=== PATIENT | female | born 1955 | race Caucasian/White ===

== ENCOUNTER → 2017-07-15 | Outpatient (CLI) | payer OTHER ==
[~2017-07-15] MED LIST: ASPI-621 PO; INSU100C SQ-INSULIN; INSU100V8 SQ; LISI2.5T PO; METF500T4 PO; METO25TA35 PO; SERT25TA PO; VORT10TA PO; ZOLP-413 PO
== END | disposition home or self-care (01) ==
LOC: PETCFH 07:54
PROVIDERS: ATTEND Internal Medicine Gastroenterology
DX: R11.2 Nausea with vomiting, unspecified (principal)
CPT/HCPCS: 78264; A9541

== ENCOUNTER 2017-09-09 14:26 | Inpatient (IN) | payer OTHER ==
[~2017-09-09] VITALS: Ht 158.8 cm; Wt 99.6 kg
[2017-09-09] MEDS ORDERED: LORazepam 2 MG/ML, 1ML IVPush ONE (15:00)
[2017-09-09] MEDS ORDERED: SODIUM CHLORIDE FLUSH 10ML SYR IVF ONE (15:00)
[2017-09-09] MEDS ORDERED: LORazepam 2 MG/ML, 1ML ONE (15:19)
[2017-09-09 15:36] LABS: HEMATOCRIT 37.6 % (34.6-47.8); HEMOGLOBIN 12.4 g/dL (11.7-16.4); WHITE BLOOD COUNT 10.6 x10^3/uL (3.4-10)
[2017-09-09 15:46] LABS: ASPARTATE AMINO TRANSFERASE 8 U/L (15-37); BLOOD UREA NITROGEN 12 mg/dL (7-18)
[2017-09-09] MEDS ORDERED: COLE1TAB2 PO (15:48)
[2017-09-09] MEDS ORDERED: VORT20TA PO (15:48)
[2017-09-09] MEDS ORDERED: LISI5TAB7 PO (15:48)
[2017-09-09] MEDS ORDERED: ATOR40TA78 PO (15:48)
[2017-09-09] MEDS ORDERED: ONDA4TAB12 PO (15:50)
[2017-09-09 15:52] LABS: IS PT STATUS REG ER OR PRE ER? YES
[2017-09-09] MEDS ORDERED: ASPI-650 PO (16:53)
[2017-09-09] MEDS ORDERED: SODIUM CHLORIDE 0.9% 1,000 ML IV SCH (17:35)
[2017-09-09] MEDS ORDERED: ONDANSETRON 2MG/ML, 2ML IVPush PRN (18:00)
[2017-09-09] MEDS ORDERED: ONDANSETRON ODT 4 MG PO PRN (18:00)
[2017-09-09] MEDS ORDERED: LABETALOL 5MG/ML, 20ML IVPush PRN (18:00)
[2017-09-09] MEDS ORDERED: HYDROcodone/APAP 5/325 TABLET PO PRN (18:00)
[2017-09-09] MEDS ORDERED: POLYETHYLENE GLYCOL 17 GM PACKET PO PRN (18:00)
[2017-09-09] MEDS ORDERED: MAALOX/HYOSCYAMINE/LIDOCAINE 45 ML BTL PO ONE (18:30)
[2017-09-09 19:53] VITALS: BP 156/90
[2017-09-09] MEDS: ATORVASTATIN 40 MG TABLET PO SCH (20:08)
[2017-09-09] MEDS: metFORMIN 500 MG TABLET PO SCH (20:11)
[2017-09-09] MEDS: PANTOPRAZOLE 40 MG IV IVPush SCH (20:11)
[2017-09-09] MEDS: ENOXAPARIN 40 MG/0.4 ML SQ SCH (20:12)
[2017-09-09] MEDS ORDERED: trintellix PO (20:34)
[2017-09-09] MEDS: INSULIN DETEMIR 100 UNITS/ML, PEN SQ-INSULIN SCH (21:00)
[2017-09-09 21:03] VITALS: BP 152/84
[2017-09-09 22:12] LABS: IS PT STATUS REG ER OR PRE ER? NO
[2017-09-10 01:35] VITALS: BP 145/79
[2017-09-10 04:09] LABS: HEMATOCRIT 36.8 % (34.6-47.8); HEMOGLOBIN 12.1 g/dL (11.7-16.4); WHITE BLOOD COUNT 11.2 x10^3/uL (3.4-10)
[2017-09-10 04:25] LABS: ASPARTATE AMINO TRANSFERASE 7 U/L (15-37); BLOOD UREA NITROGEN 13 mg/dL (7-18)
[2017-09-10 04:44] LABS: IS PT STATUS REG ER OR PRE ER? NO
[2017-09-10 07:31] VITALS: BP 170/83
[2017-09-10] MEDS: metFORMIN 500 MG TABLET PO SCH ×2 (08:04→22:52)
[2017-09-10] MEDS: SENNA/DOCUSATE TABLET PO SCH (08:04)
[2017-09-10] MEDS ORDERED: REGADENOSON 0.4 MG/5 ML SYRINGE ONE (08:17)
[2017-09-10] MEDS: PANTOPRAZOLE 40 MG IV IVPush SCH ×2 (09:00→11:41)
[2017-09-10] MEDS ORDERED: SODIUM CHLORIDE FLUSH 10ML SYR IVF SCH (09:00)
[2017-09-10] MEDS: ASPIRIN 325 MG TABLET EC PO SCH (11:41)
[2017-09-10] MEDS: LISINOPRIL 5 MG TABLET PO SCH (11:41)
[2017-09-10] MEDS: INSULIN DETEMIR 100 UNITS/ML, PEN SQ-INSULIN SCH ×2 (11:43→22:50)
[2017-09-10 13:45] VITALS: BP 155/85
[2017-09-10] MEDS ORDERED: ACETAMINOPHEN 325 MG TABLET PO PRN (17:00)
[2017-09-10] MEDS: INSULIN ASPART 100 UNITS/ML, PEN SQ-INSULIN SCH (18:00)
[2017-09-10 18:49] VITALS: BP 162/82
[2017-09-10] MEDS ORDERED: DEXTROSE 4 GM TAB.CHEW PO PRN ×2 (19:30)
[2017-09-10] MEDS ORDERED: HYDROcodone/APAP 5/325 TABLET PO PRN (19:30)
[2017-09-10] MEDS ORDERED: ONDANSETRON 2MG/ML, 2ML IVPush PRN (19:30)
[2017-09-10] MEDS ORDERED: ONDANSETRON ODT 4 MG PO PRN (19:30)
[2017-09-10] MEDS ORDERED: DEXTROSE 50%, 50ML SYRINGE IVPush PRN ×2 (19:30)
[2017-09-10] MEDS ORDERED: POLYETHYLENE GLYCOL 17 GM PACKET PO PRN (19:30)
[2017-09-10] MEDS ORDERED: GLUCAGON 1 MG IM PRN ×2 (19:30)
[2017-09-10] MEDS: ENOXAPARIN 40 MG/0.4 ML SQ SCH (22:51)
[2017-09-10] MEDS: ATORVASTATIN 40 MG TABLET PO SCH (22:52)
[2017-09-10] MEDS: SODIUM CHLORIDE FLUSH 10ML SYR IVF SCH (22:52)
[2017-09-11 01:20] VITALS: BP 168/84
[2017-09-11 04:41] LABS: HEMOGLOBIN 12.9 g/dL (11.7-16.4); WHITE BLOOD COUNT 14.9 x10^3/uL (3.4-10)
[2017-09-11 04:47] LABS: BLOOD UREA NITROGEN 22 mg/dL (7-18)
[2017-09-11 04:52] LABS: ASPARTATE AMINO TRANSFERASE 10 U/L (15-37)
[2017-09-11 06:52] VITALS: BP 166/100
[2017-09-11] MEDS: LABETALOL 5MG/ML, 20ML IVPush PRN (07:46)
[2017-09-11] MEDS: LISINOPRIL 5 MG TABLET PO SCH (09:16)
[2017-09-11] MEDS: SENNA/DOCUSATE TABLET PO SCH (09:16)
[2017-09-11] MEDS: ASPIRIN 325 MG TABLET EC PO SCH (09:16)
[2017-09-11] MEDS: PANTOPRAZOLE 40 MG IV IVPush SCH ×2 (09:16→21:55)
[2017-09-11] MEDS: SODIUM CHLORIDE FLUSH 10ML SYR IVF SCH ×2 (09:17→21:56)
[2017-09-11] MEDS: INSULIN DETEMIR 100 UNITS/ML, PEN SQ-INSULIN SCH ×2 (09:18→21:55)
[2017-09-11 09:25] VITALS: BP 156/82
[2017-09-11] MEDS: INSULIN ASPART 100 UNITS/ML, PEN SQ-INSULIN SCH ×3 (09:32→17:27)
[2017-09-11] MEDS: SODIUM CHLORIDE 0.9% 1,000 ML IV SCH ×2 (10:00→23:21)
[2017-09-11] MEDS ORDERED: SODIUM CHLORIDE 0.9% 1,000 ML IV SCH (10:00)
[2017-09-11 13:19] VITALS: BP 130/76
[2017-09-11 15:56] VITALS: BP 115/85
[2017-09-11 18:24] VITALS: BP 139/75
[2017-09-11] MEDS: ENOXAPARIN 40 MG/0.4 ML SQ SCH (20:00)
[2017-09-11] MEDS: ATORVASTATIN 40 MG TABLET PO SCH (21:55)
[2017-09-12 02:24] VITALS: BP 172/90
[2017-09-12] MEDS: ACETAMINOPHEN 325 MG TABLET PO PRN ×2 (02:27→08:32)
[2017-09-12] MEDS: LABETALOL 5MG/ML, 20ML IVPush PRN (02:35)
[2017-09-12 03:30] VITALS: BP 144/75
[2017-09-12 05:22] LABS: HEMATOCRIT 36.7 % (34.6-47.8); HEMOGLOBIN 12.1 g/dL (11.7-16.4); WHITE BLOOD COUNT 12.6 x10^3/uL (3.4-10)
[2017-09-12 05:34] LABS: ASPARTATE AMINO TRANSFERASE 4 U/L (15-37); BLOOD UREA NITROGEN 17 mg/dL (7-18)
[2017-09-12 06:39] VITALS: BP 149/77
[2017-09-12] MEDS: ASPIRIN 325 MG TABLET EC PO SCH (08:32)
[2017-09-12] MEDS: PANTOPRAZOLE 40 MG IV IVPush SCH (08:33)
[2017-09-12] MEDS: SODIUM CHLORIDE FLUSH 10ML SYR IVF SCH (08:33)
[2017-09-12] MEDS: LISINOPRIL 5 MG TABLET PO SCH (08:33)
[2017-09-12] MEDS: SENNA/DOCUSATE TABLET PO SCH (08:33)
[2017-09-12] MEDS: INSULIN DETEMIR 100 UNITS/ML, PEN SQ-INSULIN SCH (08:34)
[2017-09-12] MEDS: INSULIN ASPART 100 UNITS/ML, PEN SQ-INSULIN SCH ×2 (08:34→12:13)
[2017-09-12] MEDS ORDERED: LISINOPRIL 5 MG TABLET PO ONE (10:30)
[2017-09-12] MEDS: SODIUM CHLORIDE 0.9% 1,000 ML IV SCH (11:04)
[2017-09-12] MEDS ORDERED: LISI-167 PO (11:48)
[2017-09-12] MEDS ORDERED: INSU100V8 SQ (11:48)
[2017-09-12] MEDS ORDERED: ASPI-515 PO (11:48)
[2017-09-12 11:51] VITALS: BP 160/83
[2017-09-12] MEDS ORDERED: METO25TA35 PO (11:55)
[2017-09-12] MEDS ORDERED: METOPROLOL TARTRATE 25 MG TABLET PO SCH (12:00)
[2017-09-12 12:57] VITALS: BP 158/84
== END 2017-09-12 16:55 | disposition home or self-care (01) | DRG 638 ==
LOC: ED 15:21 → EDIP 16:09 → 5SO 17:05
PROVIDERS: ADMIT Hospitalist; ATTEND Hospitalist
DX: E11.649 Type 2 diabetes mellitus with hypoglycemia without coma (principal); E44.1 Mild protein-calorie malnutrition; E66.01 Morbid (severe) obesity due to excess calories; D72.829 Elevated white blood cell count, unspecified; E78.5 Hyperlipidemia, unspecified; R07.2 Precordial pain; I16.0 Hypertensive urgency; I25.10 Atherosclerotic heart disease of native coronary artery without angina pectoris; F32.9 Major depressive disorder, single episode, unspecified; G47.33 Obstructive sleep apnea (adult) (pediatric); Z95.1 Presence of aortocoronary bypass graft; Z90.49 Acquired absence of other specified parts of digestive tract
CPT/HCPCS: 36415; 71010; 71020; 78452; 80053; 81003; 82962; 83036; 83735; 84484; 85025; 85610; 93005; 93017; 93306; 96374; J1650; J1815; J2405; J2785; A9502; C9113; C9898; J2060; J7030

== ENCOUNTER 2017-10-10 07:47 | Day surgery (SDC) | payer OTHER ==
[~2017-10-10] VITALS: Ht 157.5 cm; Wt 95.0 kg
[~2017-10-10 07:47] MED LIST changes: +ASPI-515 PO; +ASPI-650 PO; +ATOR40TA78 PO; +BUPIVACAINE/PF 0.5% ONE; +COLE1TAB2 PO; +EPINEPHRINE 1 MG/ML, 1ML ONE; +INSU100I13 SC; +LISI-167 PO; +LISI5TAB7 PO; +ONDA4TAB12 PO; +VORT20TA PO; +trintellix PO
[2017-10-10 08:48] VITALS: BP 151/81
[2017-10-10] MEDS ORDERED: SCOPOLAMINE 1MG PATCH TD STA (08:49)
[2017-10-10] MEDS ORDERED: SCOPOLAMINE 1MG PATCH TD ONE (08:57)
[2017-10-10] MEDS ORDERED: PROPOFOL 50 ML ONE (09:11)
[2017-10-10] MEDS ORDERED: FENTANYL PF 100 MCG/2ML ONE (09:11)
[2017-10-10] MEDS ORDERED: MIDAZOLAM 1 MG/ML, 2ML ONE (09:11)
[2017-10-10] MEDS ORDERED: LIDOCAINE-MPF 2% ,5ML ONE (09:12)
[2017-10-10] MEDS ORDERED: LACTATED RINGERS 1,000 ML IV SCH (09:15)
[2017-10-10] MEDS ORDERED: ONDANSETRON 2MG/ML, 2ML ONE (09:15)
[2017-10-10] MEDS ORDERED: CEFAZOLIN 1,000 MG ONE (09:15)
[2017-10-10] MEDS ORDERED: PROPOFOL 10 MG/ML, 20ML ONE (09:15)
[2017-10-10] MEDS ORDERED: DEXAMETHASONE 4 MG/ML, 1ML ONE (09:15)
[2017-10-10] MEDS ORDERED: PHENYLEPHRINE 10 MG/ML ONE (10:04)
[2017-10-10] MEDS ORDERED: LIDOCAINE GEL 2%, 5ML ONE (10:09)
[2017-10-10] MEDS ORDERED: KETOROLAC 30 MG/1 ML ONE (10:28)
== END 2017-10-10 13:45 ==
LOC: OUT 07:47
PROVIDERS: ATTEND Surgery
DX: N63.20 Unspecified lump in the left breast, unspecified quadrant (principal); L91.8 Other hypertrophic disorders of the skin; E11.9 Type 2 diabetes mellitus without complications; E78.00 Pure hypercholesterolemia, unspecified; K21.9 Gastro-esophageal reflux disease without esophagitis; I25.10 Atherosclerotic heart disease of native coronary artery without angina pectoris; E78.5 Hyperlipidemia, unspecified; E66.9 Obesity, unspecified; Z68.38 Body mass index [BMI] 38.0-38.9, adult; Z88.6 Allergy status to analgesic agent; Z88.3 Allergy status to other anti-infective agents; Z90.49 Acquired absence of other specified parts of digestive tract; Z98.890 Other specified postprocedural states
CPT/HCPCS: 11200; 19120; 82962; 88304; 88307; J0171; J0690; J1100; J1885; J2250; J2370; J2405; J2704; J3010; J3490; J7120

== ENCOUNTER 2017-10-10 23:22 | Emergency (ER) | payer OTHER ==
[~2017-10-10 23:22] MED LIST changes: -BUPIVACAINE/PF 0.5% ONE; -EPINEPHRINE 1 MG/ML, 1ML ONE
[2017-10-11 00:26] LABS: HEMATOCRIT 38.3 % (34.6-47.8); HEMOGLOBIN 12.6 g/dL (11.7-16.4); WHITE BLOOD COUNT 14.8 x10^3/uL (3.4-10)
[2017-10-11 00:26] LABS: PH, VENOUS 7.387 pH (7.320-7.420)
[2017-10-11] MEDS ORDERED: SODIUM CHLORIDE 0.9% 1,000ML IVBOLUS ONE (00:30)
[2017-10-11 00:39] LABS: ASPARTATE AMINO TRANSFERASE 8 U/L (15-37); BLOOD UREA NITROGEN 28 mg/dL (7-18)
[2017-10-11] MEDS ORDERED: INSULIN REGULAR 100 UNITS/ML, 3ML VIAL IVPush ONE ×2 (01:00→01:30)
[2017-10-11] MEDS ORDERED: INSULIN REGULAR 100 UNITS/ML, 3ML VIAL ONE (01:20)
[2017-10-11 02:05] VITALS: BP 155/74
== END 2017-10-11 02:07 | disposition home or self-care (01) ==
LOC: ED 23:59
DX: E11.65 Type 2 diabetes mellitus with hyperglycemia (principal); R51 Headache; E78.5 Hyperlipidemia, unspecified; I10 Essential (primary) hypertension; I25.810 Atherosclerosis of coronary artery bypass graft(s) without angina pectoris; Z95.1 Presence of aortocoronary bypass graft; Z90.49 Acquired absence of other specified parts of digestive tract
CPT/HCPCS: 36415; 80053; 81003; 82010; 82803; 82962; 83690; 85025; 96361; 96374; 99284; J7030

== ENCOUNTER 2018-12-01 11:32 | Emergency (ER) | payer MEDICARE, OTHER ==
[~2018-12-01] VITALS: Ht 157.5 cm; Wt 95.6 kg
[~2018-12-01 11:32] MED LIST changes: -ASPI-621 PO; +ASPI81TA45 PO; +METF500T17 PO; -METF500T4 PO
--- NOTE | 2018-12-01 11:40 | NUR ---
FIRST CONTACT WITH PT. PT C/O LEFT SIDE CP X3DAYS AND DRY COUGH X 3WEEK WITH NAUSEA. PT STATES GRADUAL ONSET OF LEFT SIDE CP AND DENIES RADIATING TO ANYWHERE. PT HAS HX OF PHNEUMONIA,HTN,HLD,[place]. PT DENIES FEVER/D AND [place]. PT AOX4. NEURO INTACT. RESPS EVEN AND UNLABORED. ALL MONITORS IN PLACE. CALL LIGHT WITHIN REACH.
[2018-12-01] MEDS ORDERED: ASPI-650 PO (12:14)
[2018-12-01 12:22] LABS: BASOPHILS # (AUTO) 0.09 x10^3/uL (0-0.1); BASOPHILS % (AUTO) 1 % (0-1); EOSINOPHILS # (AUTO) 0.26 x10^3/uL (0-0.4); EOSINOPHILS % (AUTO) 2 % (1-7); LYMPHOCYTES # (AUTO) 2.91 x10^3/uL (1-3.4); LYMPHOCYTES % (AUTO) 23 % (22-44); MD NO; MEAN CORPUSCULAR HEMOGLOBIN 27.8 pg (27.0-34.8); MEAN CORPUSCULAR HGB CONC 32.9 g/dL (32.4-35.8); MEAN CORPUSCULAR VOLUME 84.4 fL (80-100); MEAN PLATELET VOLUME 7.3 fL (7.4-10.4); MONOCYTES # (AUTO) 0.61 x10^3/uL (0.2-0.8); MONOCYTES % (AUTO) 5 % (2-9); NEUTROPHILS # (AUTO) 8.61 x10^3/uL (1.8-6.8); NEUTROPHILS % (AUTO) 69 % (42-75); PLATELET COUNT 377 x10^3/uL (130-400); RED BLOOD COUNT 4.56 x10^6/uL (3.82-5.3); RED CELL DISTRIBUTION WIDTH 14.3 % (9.6-15.2)
[2018-12-01] MEDS ORDERED: ENALAPRILAT 1.25 MG/ML, 2ML IV ONE (12:30)
[2018-12-01 12:32] LABS: ALBUMIN 3.7 g/dL (3.4-5.0); ANION GAP 7 mmol/L (5-15); CALCIUM 8.9 mg/dL (8.5-10.1); CHLORIDE 108 mmol/L (98-107); CREATININE 0.92 mg/dL (0.55-1.02)
[2018-12-01] MEDS ORDERED: ENALAPRILAT 1.25 MG/ML, 2ML ONE (12:35)
[2018-12-01 12:36] LABS: TROPONIN I < 0.015 ng/mL (0.000-0.045)
--- NOTE | 2018-12-01 12:39 | NUR ---
PT AMB TO BR WITH STEADY GAIT.
--- NOTE | 2018-12-01 13:00 | NUR ---
PRECEPTOR NOTE: PIV placed. pt medicated per emar, tolerated well. pt a&o, resps even and unlabored. nsr on teletypesetter monitor with no ectopy. call light in reach. all results back, awaiting MD recheck and dispo.
--- NOTE | 2018-12-01 13:19 | NUR ---
MANDI QURESHI AT BEDSIDE TO UPDATE PT WITH RESULTS AND POC.
[2018-12-01 13:26] VITALS: BP 173/73
--- NOTE | 2018-12-01 13:28 | NUR ---
PT RESTING IN [facility]. PT AOX4. RESPS EVEN AND UNLABORED. DENIES ANY NEEDS AND CONCERNS AT THIS TIME.CALL LIGHT WITHIN REACH.
--- NOTE | 2018-12-01 13:48 | NUR ---
TASK RN: Patient/Caregiver given discharge instructions and they have confirmed that they understand the instructions. Patient ambulatory with steady gait.
== END 2018-12-01 13:49 | disposition home or self-care (01) ==
LOC: ED 12:52
DX: R07.89 Other chest pain (principal); B34.9 Viral infection, unspecified; I10 Essential (primary) hypertension; E11.9 Type 2 diabetes mellitus without complications; F32.9 Major depressive disorder, single episode, unspecified; Z90.49 Acquired absence of other specified parts of digestive tract
CPT/HCPCS: 36415; 71045; 80048; 82040; 84484; 85025; 93005; 96374